=== PATIENT | male | born 1945 | race Caucasian/White ===

== ENCOUNTER 2017-03-12 10:06 | Emergency (ER) | payer MEDICARE ==
[~2017-03-12] VITALS: Ht 180.3 cm; Wt 80.0 kg
[~2017-03-12 10:06] MED LIST: ACYC1CAP16 PO; ASPI81TA11 PO; EPIP0.3I IM; NAPR220T95 PO; RAPA8CAP PO; TAB-TAB PO; TYLE500T PO
[2017-03-12 10:13] VITALS: BP 139/67; PULSE 64; RESP 20; TEMP 97.7; O2SAT 99
[2017-03-12] MEDS ORDERED: ASPI81CH CHEW (10:25)
[2017-03-12] MEDS ORDERED: ACYC400T PO (10:25)
[2017-03-12] MEDS ORDERED: OMEGCAP PO (10:25)
[2017-03-12] MEDS ORDERED: CIPR-9 PO (10:25)
[2017-03-12] MEDS ORDERED: PRAV40TA2 PO (10:25)
[2017-03-12] MEDS ORDERED: ACETAMINOPHEN/HYDROcodone 325 MG/5 MG TAB PO ONE (10:30)
[2017-03-12 10:52] LABS: AUTOMATED NEUTROPHIL # 4.8 TH/MM3 (1.8-7.7); BASOPHIL # 0.1 TH/MM3 (0-0.2); BASOPHIL % 1.2 % (0.0-2.0); EOSINOPHIL # 0.2 TH/MM3 (0-0.4); EOSINOPHIL % 3.2 % (0.0-4.0); HEMO FLAGS DIFF FINAL; LYMPH % 12.7 % (9.0-44.0); LYMPHOCYTE # 0.8 TH/MM3 (1.0-4.8); MEAN CORPUSCULAR HEMOGLOBIN 31.5 PG (27.0-34.0); MEAN CORPUSCULAR HGB CONC 33.2 % (32.0-36.0); MONO % 8.4 % (0.0-8.0); NEUT % 74.5 % (16.0-70.0); PLATELET COUNT 185 TH/MM3 (150-450); RED CELL DISTRIBUTION WIDTH 11.6 % (11.6-17.2); WHITE BLOOD COUNT 6.4 TH/MM3 (4.0-11.0)
[2017-03-12 11:01] LABS: CHLORIDE 107 MEQ/L (98-107); POTASSIUM 4.9 MEQ/L (3.5-5.1); SODIUM (NA) 141 MEQ/L (136-145)
[2017-03-12 11:05] LABS: ANION GAP 5 MEQ/L (5-15); BICARBONATE 28.8 MEQ/L (21.0-32.0); BLOOD UREA NITROGEN 17 MG/DL (7-18)
[2017-03-12 11:08] LABS: ALT (GPT) 53 U/L (12-78); AST (GOT) 52 U/L (15-37); GLOMERULAR FILTRATION RATE 60 ML/MIN (>89)
[2017-03-12 11:09] LABS: TOTAL BILIRUBIN ADULT 0.3 MG/DL (0.2-1.0)
[2017-03-12 11:10] LABS: ALKALINE PHOSPHATASE 107 U/L (45-117)
--- NOTE | 2017-03-12 11:22 | RADRPT ---
EXAM DATE/TIME: 03/12/2017 10:58 [place] COMPARISON: No previous studies available for comparison. INDICATIONS : States he had injection in foot , now having pain, swelling MEDICAL HISTORY : None. SURGICAL HISTORY : None. ENCOUNTER: Initial ACUITY: 4 - 6 days PAIN SCORE: 7/10 LOCATION: Left foot FINDINGS: There is soft tissue swelling along the plantar surface of the foot anteriorly. No retained foreign b radha is seen. The osseous structures are intact. There is no acute fracture. CONCLUSION: 1. Soft tissue swelling. No retained foreign body identified. Italo Liang MD on March 12, 2017 at 11:20 Board Certified Radiologist. This report was verified electronically.
[2017-03-12 11:38] VITALS: RESP 18
[2017-03-12] MEDS ORDERED: CLIN1CAP6 PO (12:08)
--- NOTE | 2017-03-12 12:08 | PD ---
HPI Chief Complaint: Edema Time Seen by Provider: 10:20 Travel History International Travel<30 days: No Contact w/Intl Traveler<30days: No Traveled to known affect area: No History of Present Illness HPI Patient is a 72 year old male, who comes in complaining of pain and swelling to his left foot. He says he has no fat pad in that foot, and received an injection to the area by his shook splicer earlier in the week. He says at first he felt fine, and then slowly started to have worsening pain in the area of the injection. He says this morning when he woke up it was read. He is currently on Cipro because he had a cystoscopy done last week as well. He denies any fever or chills. He does say he has a lot of pain with walking on the foot. He denies any leg pain or any injury to the foot. PFSH Past Medical History Cancer: Yes (SKIN CA) Cardiovascular Problems: No Diabetes: No Endocrine: No Genitourinary: No Hepatitis: No Hiatal Hernia: No Hypertension: Yes Immune Disorder: No Musculoskeletal: Yes (FUSED BACK) Neurologic: No Psychiatric: No Reproductive: No Respiratory: No Immunizations Current: Yes Thyroid Disease: No Influenza Vaccination: Yes Past Surgical History AICD: No Cardiac Surgery: No Ear Surgery: No Endocrine Surgery: No Eye Surgery: No Genitourinary Surgery: Yes (CYSTOSCOPY 03/22) Gynecologic Surgery: No Joint Replacement: No Neurologic Surgery: No Oral Surgery: No Pacemaker: No Thoracic Surgery: No Other Surgery: Yes Social History Alcohol Use: Yes (OCCAS) Tobacco Use: No Substance Use: No Allergies-Medications (Allergen,Severity, Reaction): Coded Allergies: peanut (Unverified Allergy, Severe, Anaphylaxis, 03/12/17) morphine (Verified Adverse Reaction, Intermediate, GI UPSET, 03/12/17) Reported Meds & Prescriptions Reported Meds & Active Scripts Active Reported Cipro (Ciprofloxacin HCl) 500 Mg Tab 500 Mg PO BID [employer] Fish Oil/Vitamin (Fish Oil-Cholecalciferol) 1,000-1,000 Mg Cap 1 Cap PO DAILY Aspirin 81 Mg Chew 81 Mg CHEW DAILY Acyclovir 400 Mg Tab 400 Mg PO BID Pravastatin 40 Mg Tab 40 Mg PO DAILY Review of Systems Except as stated in HPI: all other systems reviewed are Neg General / Constitutional: No: Fever, Chills HENT: No: Headaches, Lightheadedness Cardiovascular: No: Chest Pain or Discomfort Respiratory: No: Shortness of Breath Gastrointestinal: No: Nausea, Vomiting Genitourinary: No: Dysuria Musculoskeletal: Positive: Edema, Pain Skin: Positive Change in Pigmentation Neurologic: No: Weakness, Dizziness Physical Exam Narrative GENERAL: Awake and alert, in no acute distress. SKIN: Focused skin assessment warm/dry. HEAD: Atraumatic. Normocephalic. EYES: Pupils equal and round. No scleral icterus. ENT: No nasal bleeding or discharge. Mucous membranes pink and moist. NECK: Trachea midline. No JVD. CARDIOVASCULAR: Regular rate and rhythm. No murmur appreciated. RESPIRATORY: No accessory muscle use. Clear to auscultation. Breath sounds equal bilaterally. MUSCULOSKELETAL: No obvious deformities. No clubbing. No cyanosis. Mild edema of the toes on the left foot. There is a small area of erythema just below the left third toe, approximately 2 cm in diameter. There is no fluctuance. There is no warmth. Pedal pulses intact. NEUROLOGICAL: Awake and alert. No obvious cranial nerve deficits. Motor grossly within normal limits. Normal speech. PSYCHIATRIC: Appropriate mood and affect; insight and judgment normal. Data Data Last Documented VS Vital Signs Date Time Temp Pulse Resp B/P (MAP) Pulse Ox O2 Delivery O2 Flow Rate FiO2 03/12/17 11:38 18 03/12/17 10:13 97.7 64 139/67 (91) 99 Orders Orders Complete Blood Count With Diff (03/12/17 10:27) Comprehensive Metabolic Panel (03/12/17 10:27) Foot, Complete ([id number]) (03/12/17 ) Acetamin-Hydrocod 325-5 Mg (Jeannette 5-325 (03/12/17 10:30) Labs Laboratory Tests Test 03/12/17 10:45 White Blood Count 6.4 TH/MM3 Red Blood Count 4.00 MIL/MM3 Hemoglobin 12.6 GM/DL Hematocrit 38.0 % Mean Corpuscular Volume 95.0 FL Mean Corpuscular Hemoglobin 31.5 PG Mean Corpuscular Hemoglobin Concent 33.2 % Red Cell Distribution Width 11.6 % Platelet Count 185 TH/MM3 Mean Platelet Volume 8.1 FL Neutrophils (%) (Auto) 74.5 % Lymphocytes (%) (Auto) 12.7 % Monocytes (%) (Auto) 8.4 % Eosinophils (%) (Auto) 3.2 % Basophils (%) (Auto) 1.2 % Neutrophils # (Auto) 4.8 TH/MM3 Lymphocytes # (Auto) 0.8 TH/MM3 Monocytes # (Auto) 0.5 TH/MM3 Eosinophils # (Auto) 0.2 TH/MM3 Basophils # (Auto) 0.1 TH/MM3 CBC Comment DIFF FINAL Differential Comment Blood Urea Nitrogen 17 MG/DL Creatinine 1.20 MG/DL Random Glucose 94 MG/DL Total Protein 6.5 GM/DL Albumin 3.6 GM/DL Calcium Level 8.7 MG/DL Alkaline Phosphatase 107 U/L Aspartate Amino Transf (AST/SGOT) 52 U/L Alanine Aminotransferase (ALT/SGPT) 53 U/L Total Bilirubin 0.3 MG/DL Sodium Level 141 MEQ/L Potassium Level 4.9 MEQ/L Chloride Level 107 MEQ/L Carbon Dioxide Level 28.8 MEQ/L Anion Gap 5 MEQ/L Estimat Glomerular Filtration Rate 60 ML/MIN MDM Medical Decision Making Medical Screen Exam Complete: Yes Emergency Medical Condition: Yes Medical Record Reviewed: Yes Differential Diagnosis Cellulitis versus abscess versus injury Narrative Course Patient is a 72-year-old male who comes in complaining of foot pain. Exam shows a very small area of erythema with some edema of the toes. IV established , labs sent. Labs show no acute abnormalities, white blood cell count is within normal limits. X-ray of the foot shows some soft tissue swelling, no other abnormalities. Patient given a pain pill. At this time, I will give him a prescription for clindamycin to cover any skin infection. He is advised to follow-up with his shook splicer Tuesday. Advised to return any time for any worsening symptoms. He is offered prescription for pain medicine, but declines at this time. Diagnosis Primary Impression: Cellulitis Qualified Codes: L03.116 - Cellulitis of left lower limb Patient Instructions: Cellulitis (ED), General Instructions Additional Instructions: Follow-up with your shook splicer Tuesday. Take all of your antibiotics. Plan ice and keep her foot elevated. Return to the ED at any time for any worsening symptoms. Scripts Clindamycin (Clindamycin) 300 Mg Cap 600 MG PO Q8H for Infection for 7 Days, #42 CAP 0 Refills Prov: Elvira Garza MD 03/12/17 Disposition: 01 DISCHARGE HOME Condition: Stable Elvira Garza MD Mar 12, 2017 12:08
== END 2017-03-12 12:22 | disposition home or self-care (01) ==
LOC: PHED 10:06
DX: L03.116 Cellulitis of left lower limb (principal); I10 Essential (primary) hypertension
CPT/HCPCS: 73630; 80053; 85025; 99284